=== PATIENT | male | born 1970 | race Hispanic/Latino ===

== ENCOUNTER 2020-05-05 11:31 | Day surgery (SDC) | payer OTHER ==
[~2020-05-05 11:31] MED LIST: ACETAMINOPHEN 500 MG TAB PO SCH; LACTATED RINGERS 1,000 ML IV SCH; MIDAZOLAM 2 MG/2 ML INJ IV NR
[2020-05-05] MEDS ORDERED: HYDROcodone/ACETAMINOPHEN 5-325 MG TAB PO PRN (12:26)
[2020-05-05] MEDS ORDERED: HYDROmorphone 1 MG/1 ML INJ IV PRN (12:26)
[2020-05-05] MEDS ORDERED: ONDANSETRON 4 MG/2 ML INJ IV PRN (12:26)
--- NOTE | 2020-05-05 12:26 | Anesthesia Day of Surgery ---
Anesthesia Day of Surgery - Day of Surgery Patient Examined: Yes Patient H&P Reviewed: Yes Patient is NPO: Yes
--- NOTE | 2020-05-05 12:26 | Anesthesia Consultation ---
Anesthesia Consult and Med Hx Date of service: 05/05/20 - Airway Anesthetic Teeth Evaluation: Good ROM Head & Neck: Adequate Mental/Hyoid Distance: Adequate Mallampati Class: Class I Intubation Access Assessment: Good - Pre-Operative Health Status ASA Pre-Surgery Classification: ASA2 Proposed Anesthetic Plan: General - Pulmonary Hx Smoking: Yes (1 PPD) Hx Respiratory Symptoms: No - Cardiovascular System Hx Hypertension: No Hx Cardia Arrhythmia: No (palpitations associated with anxiety) - Central Nervous System CVA: No Hx Back Pain: Yes Hx Psychiatric Problems: Yes (anxiety) - Gastrointestinal Hx Gastroesophageal Reflux Disease: Yes - Endocrine Hx Renal Disease: No Hx Liver Disease: No Hx Insulin Dependent Diabetes: No Hx Non-Insulin Dependent Diabetes: No Hx Thyroid Disease: No - Other Systems Hx Obesity: No - Additional Comments Anesthesia Medical History Comments: No prior GA. No FHx anesthetic complications.
[2020-05-05] MEDS ORDERED: LIDOCAINE 1.5% /EPINEPHRINE 1:200,000 AMP (5 ML) INFILTRATI ONE (12:39)
[2020-05-05] MEDS ORDERED: BUPIVACAINE/PF (0.5%) 5 MG/1 ML 30 ML VIAL INFILTRATI ONE ×3 (12:39→14:42)
[2020-05-05] MEDS ORDERED: HEPARIN 5,000 UNIT/1 ML VIAL SUB-Q NR (13:00)
[2020-05-05] MEDS ORDERED: ceFAZolin/STERILE WATER 2 GM/20 ML SYRINGE IV NR (13:01)
[2020-05-05] MEDS ORDERED: LIDOCAINE MPF (2%) 20 MG/1 ML VIAL 5 ML ONE (13:19)
[2020-05-05] MEDS ORDERED: ONDANSETRON 4 MG/2 ML INJ ONE (13:19)
[2020-05-05] MEDS ORDERED: dexAMETHasone 20 MG/5 ML VIAL ONE (13:19)
[2020-05-05] MEDS ORDERED: fentaNYL 100 MCG/2 ML INJ ONE (13:20)
[2020-05-05] MEDS ORDERED: propofoL 200 MG/20 ML VIAL IV ONE (13:20)
[2020-05-05] MEDS ORDERED: ROCURONIUM 50 MG/5 ML INJ IV ONE (14:00)
[2020-05-05] MEDS ORDERED: NEOSTIGMINE 10MG/10 ML INJ MDV ONE (14:42)
[2020-05-05] MEDS ORDERED: SODIUM CHLORIDE 0.9% IRR 1,500 ML BOTTLE IR ONE (14:42)
[2020-05-05] MEDS ORDERED: LACTATED RINGERS 1,000 ML ONE (14:42)
[2020-05-05] MEDS ORDERED: GLYCOPYRROLATE 0.4 MG/2 ML INJ ONE (14:42)
[2020-05-05] MEDS ORDERED: PHENYLEPHRINE/NS 1,000 MCG/10 ML SYRINGE (OR USE) IV ONE (15:21)
--- NOTE | 2020-05-05 15:30 | Procedure Note ---
Date of procedure: 05/05/20 Pre-op diagnosis: Right flank lipoma, 7.5 cm Post-op diagnosis: same Procedure: Excision of right flank lipoma Description of procedure: Pt was supine on his stretcher. GETA was administered and pt was repositioned prone on the OR table. Right back was prepped and draped. Skin and SQ tissue over the mass were infiltrated with 3 ml of 0.5% Marcaine. Skin was incised and the mass was excised with blunt and Bovie dissection. Operative findings were c/w a lipoma. Hemostasis was obtained with the Bovie. Deep dermis was approximated with interrupted sutures of 3-0 Vicryl. Skin was approximated with a running subcuticular suture of 4-0 Monocryl. Skin glue and a pressure dressing was applied which was secured with Tegaderm. Pt tolerated the procedure well. Pt was extubated in the OR and was taken to PACU in stable condition. Anesthesia: GETA Surgeon: MINOO CONTEH Estimated blood loss: minimal Pathology: list (Right flank lipoma) Specimen disposition: to lab Condition: stable Disposition: PACU
[2020-05-05] MEDS ORDERED: oxyCODONE /ACETAMINOPHEN 5-325MG TAB PO PRN (15:43)
--- NOTE | 2020-05-05 16:09 | Post Anesthesia Evaluation ---
- Post Anesthesia Evaluation Patient Participated: Yes Airway Patent: Yes Stable Respiratory Function: Yes Nausea/Vomiting: No Temp > 96.8F: Yes Pain Manageable: Yes Adequeate Hydration: Yes Anesthesia Complications: No
[2020-05-05 16:12] VITALS: BP 134/91
== END 2020-05-05 16:25 | disposition home or self-care (01) ==
LOC: OR 11:31
PROVIDERS: ATTEND Surgery
DX: D17.1 Benign lipomatous neoplasm of skin and subcutaneous tissue of trunk (principal); I42.9 Cardiomyopathy, unspecified; K21.9 Gastro-esophageal reflux disease without esophagitis; F17.210 Nicotine dependence, cigarettes, uncomplicated; F41.9 Anxiety disorder, unspecified; Z72.89 Other problems related to lifestyle; Z79.899 Other long term (current) drug therapy; Z98.890 Other specified postprocedural states
CPT/HCPCS: 21931; 88304; J0690; J1100; J1644; J2250; J2370; J2405; J2704; J2710; J3010; J7120